=== PATIENT | male | born 1985 | race Caucasian/White ===

== ENCOUNTER 2019-01-15 13:40 | Emergency (ER) | payer OTHER ==
[~2019-01-15] VITALS: Ht 185.4 cm; Wt 90.7 kg
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
[2019-01-15] MEDS ORDERED: ORPHENADRINE CITRATE 60 MG/2 ML VIAL. IM ONE (14:00)
[2019-01-15] MEDS ORDERED: ONDANSETRON PF 4 MG/2 ML VIAL. IV ONE (14:00)
[2019-01-15] MEDS ORDERED: DEXAMETHASONE SOD PHOS 4 MG/ML VIAL IVP ONE (14:00)
[2019-01-15] MEDS ORDERED: IV NORMAL SALINE 1000ML BAG 1,000 ML IV ONE (14:00)
[2019-01-15] MEDS ORDERED: MORPHINE SULFATE 4 MG/ML VIAL. IV ONE (14:00)
[2019-01-15 14:12] LABS: BASO # 0.1 x10^3/uL (0.0-0.2); BASO % 1 % (0-3); EOS # 0.1 x10^3/uL (0.0-0.7); EOS % 1 % (0-3); HEMATOCRIT 44.7 % (39.0-53.0); HEMOGLOBIN 15.6 g/dL (13.0-17.5); LYMPH # 2.9 x10^3/uL (1.0-4.8); LYMPH % 32 % (24-48); MEAN CORPUSCULAR HEMOGLOBIN 30 pg (25-35); MEAN CORPUSCULAR HGB CONC 35 g/dL (31-37); MEAN CORPUSCULAR VOLUME 86 fL (79-100); MONO # 0.6 x10^3/uL (0.0-1.1); MONO % 7 % (0-9); NEUT # 5.3 x10^3/uL (1.8-7.7); NEUT % 59 % (31-73); PLATELET COUNT 206 x10^3/uL (140-400); RED BLOOD COUNT 5.22 x10^6/uL (4.30-5.70); RED CELL DISTRIBUTION WIDTH 13.3 % (11.5-14.5)
[2019-01-15 14:22] LABS: CALCIUM 9.3 mg/dL (8.5-10.1); CREATININE 1.1 mg/dL (0.7-1.3); GFR 77.1
[2019-01-15 14:28] LABS: ALBUMIN 4.1 g/dL (3.4-5.0); ALBUMIN/GLOBULIN RATIO 1.1 (1.0-1.7); TOTAL BILIRUBIN 0.8 mg/dL (0.2-1.0); TOTAL PROTEIN 7.8 g/dL (6.4-8.2)
--- NOTE | 2019-01-15 14:50 | RAD ---
CT LUMBAR SPINE WO CONTRAST History: Back pain. Radiculopathy. Technique: Noncontrast CT was performed of the lumbar spine. Multiplanar reconstructions were performed. Exposure: One or more of the following individualized dose reduction techniques were utilized for this examination: 1. Automated exposure control 2. Adjustment of the mA and/or kV according to patient size 3. Use of iterative reconstruction technique. Comparison: None Findings: Transitional lumbosacral anatomy. Lumbarization of S1. Normal vertebral body height. No fracture. Normal alignment. T12-L1: No canal or neuroforaminal narrowing. L1-L2: No canal or neuroforaminal narrowing. L2-L3: No canal or neuroforaminal narrowing. L3-L4: Minimal posterior disc bulge. Mild facet arthropathy. No canal or neuroforaminal narrowing. L4-L5: Small broad-based posterior disc bulge. Mild facet arthropathy. Mild ligament of flavum thickening. Mild subarticular recess narrowing. No canal narrowing. No neuroforaminal narrowing. L5-S1: Broad-based posterior disc bulge eccentric to the left. Abutment of the bilateral descending S1 nerve roots, left greater than right. Superimposed left foraminal disc protrusion contributing to severe left neural foraminal narrowing with abutment and compression of the exiting left L5 nerve root. No right neuroforaminal narrowing. Mild facet arthropathy. Impression: 1. Left L5-S1 foraminal disc protrusion compressing the exiting left L5 nerve root. Correlate for radiculopathy. 2. L5-S1 disc bulge abutting the bilateral descending S1 nerve roots within the subarticular recess, left greater than right. Correlate for radiculopathy. Electronically signed by: Jarrod Bahena DO (01/15/2019 2:47 PM) [facility]
[2019-01-15] MEDS ORDERED: METH4TAB2 PO (15:14)
[2019-01-15] MEDS ORDERED: CYCL10TA2 PO (15:14)
[2019-01-15] MEDS ORDERED: TRAM50TA PO (15:14)
[2019-01-15] MEDS ORDERED: KETOROLAC 30 MG/ML VIAL. IV ONE (15:15)
[2019-01-15] MEDS ORDERED: MORPHINE SULFATE 2 MG/ML VIAL. IV ONE (15:15)
[2019-01-15 15:31] VITALS: BP 121/74
[2019-01-15 15:35] LABS: BILIRUBIN,URINE NEGATIVE (NEG); CLARITY,URINE CLEAR; COLOR,URINE YELLOW; NITRITE,URINE NEGATIVE (NEG); PH,URINE 6.5; PROTEIN,URINE NEGATIVE (NEG-TRACE)
[2019-01-15 15:56] LABS: BACTERIA,URINE 0 /HPF (0-FEW); RBC,URINE 0 /HPF (0-2); WBC,URINE 0 /HPF (0-4)
== END 2019-01-15 15:45 | disposition home or self-care (01) ==
LOC: ER 14:34
DX: M54.16 Radiculopathy, lumbar region (principal); M79.605 Pain in left leg; Z88.8 Allergy status to other drugs, medicaments and biological substances
CPT/HCPCS: 36415; 72131; 80053; 81001; 85025; 96372; 96374; 96375; 96376; 99285; J1100; J1885; J2270; J2360; J2405; J7030

== ENCOUNTER 2019-01-16 15:24 | Emergency (ER) | payer OTHER ==
[~2019-01-16] VITALS: Ht 185.4 cm; Wt 90.7 kg
[~2019-01-16 15:24] MED LIST: CYCL10TA2 PO; METH4TAB2 PO; TRAM50TA PO
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
[2019-01-16] MEDS ORDERED: KETAMINE HCL IN NACL, ISO-OSM 50 MG/5 ML SYRINGE IV STA (15:46)
[2019-01-16 17:00] VITALS: BP 170/81
== END 2019-01-16 17:03 | disposition home or self-care (01) ==
LOC: ER 15:24
DX: M54.16 Radiculopathy, lumbar region (principal); M79.605 Pain in left leg; Z90.89 Acquired absence of other organs; Z87.442 Personal history of urinary calculi; Z88.5 Allergy status to narcotic agent
CPT/HCPCS: 96374; 99284-25

== ENCOUNTER 2019-02-03 15:21 | Emergency (ER) | payer OTHER ==
[~2019-02-03] VITALS: Ht 185.4 cm; Wt 83.9 kg
[2019-02-03] MEDS ORDERED: IV NORMAL SALINE 1000ML BAG 1,000 ML IV ONE ×2 (15:30→17:15)
--- NOTE | 2019-02-03 15:32 | PHYS DOC ---
Past Medical History Past Medical History: Kidney Stone Past Surgical History: Appendectomy Additional Past Surgical Histo: HERNIA Alcohol Use: Occasionally Drug Use: None Adult General HPI HPI Patient is a 33 year old male that presents to the ER for abdominal pain after he went to physical therapy this morning and after he tried to use the restroom. The patient states that he has not a bowel movement in several days he states that he's been feeling like he needs to go but is been unable to go. The patient rates his pain as 10 out of 10 in severity. Review of Systems Review of Systems Constitutional: Denies fever or chills [] Eyes: Denies change in visual acuity, redness, or eye pain [] HENT: Denies nasal congestion or sore throat [] Respiratory: Denies cough or shortness of breath [] Cardiovascular: No additional information not addressed in HPI [] GI: Reports abdominal pain, Denies nausea, vomiting, bloody stools or diarrhea [] : Denies dysuria or hematuria [] Musculoskeletal: Reports ongoing back pain or joint pain [] Integument: Denies rash or skin lesions [] Neurologic: Denies headache, focal weakness or sensory changes [] Endocrine: Denies polyuria or polydipsia [] Complete systems were reviewed and found to be within normal limits, except as documented in this note. Current Medications Current Medications Current Medications Medications (Trade) Dose Ordered Sig/Jf Start Time Stop Time Status Last Admin Dose Admin Info (CONTRAST GIVEN -- Rx MONITORING) 1 each PRN DAILY PRN 02/03/19 16:30 02/05/19 16:29 Iohexol (Omnipaque 300 Mg/ml) 75 ml 1X ONCE 02/03/19 16:30 02/03/19 16:31 DC 02/03/19 16:35 75 ML Ketorolac Tromethamine (Toradol 15mg Vial) 10 mg 1X STAT 02/03/19 17:10 02/03/19 17:13 DC 02/03/19 17:39 10 MG Morphine Sulfate (Morphine Sulfate) 4 mg 1X ONCE 02/03/19 17:15 02/03/19 17:16 DC 02/03/19 17:41 4 MG Prochlorperazine Edisylate (Compazine) 10 mg 1X STAT 02/03/19 15:44 02/03/19 15:46 DC 02/03/19 15:48 10 MG Sodium Chloride 1,000 ml @ 1,000 mls/hr 1X ONCE 02/03/19 17:15 02/03/19 18:14 DC 02/03/19 17:38 1,000 MLS/HR Allergies Allergies Allergies Coded Allergies Type Severity Reaction Last Updated Verified diphenhydramine Allergy Unknown ANAPHYLAXIS 01/15/19 Yes Physical Exam Physical Exam Constitutional: Well developed, well nourished, no acute distress, non-toxic appearance. [] HENT: Normocephalic, atraumatic, bilateral external ears normal, oropharynx moist, no oral exudates, nose normal. [] Eyes: PERRLA, EOMI, conjunctiva normal, no discharge. [] Neck: Normal range of motion, no tenderness, supple, no stridor. [] Cardiovascular:Heart rate regular rhythm, no murmur [] Lungs & Thorax: Bilateral breath sounds clear to auscultation [] Abdomen: Bowel sounds normal, soft, LLQ tenderness, no masses, no pulsatile masses. [] Skin: Warm, dry, no erythema, no rash. [] Back: No tenderness, no CVA tenderness. [] Extremities: No tenderness, no cyanosis, no clubbing, ROM intact, no edema. [] Neurologic: Alert and oriented X 3, normal motor function, normal sensory function, no focal deficits noted. [] Psychologic: Affect normal, judgement normal, mood normal. [] Current Patient Data Vital Signs Vital Signs Date Time Temp Pulse Resp B/P (MAP) Pulse Ox O2 Delivery O2 Flow Rate FiO2 02/03/19 17:41 16 95 Room Air 02/03/19 15:41 97.3 92 168/102 (124) 97.3 Lab Values Laboratory Tests Test 02/03/19 15:41 02/03/19 17:30 White Blood Count 10.8 x10^3/uL (4.0-11.0) Red Blood Count 5.31 x10^6/uL (4.30-5.70) Hemoglobin 15.8 g/dL (13.0-17.5) Hematocrit 45.9 % (39.0-53.0) Mean Corpuscular Volume 86 fL (79-100) Mean Corpuscular Hemoglobin 30 pg (25-35) Mean Corpuscular Hemoglobin Concent 34 g/dL (31-37) Red Cell Distribution Width 13.6 % (11.5-14.5) Platelet Count 234 x10^3/uL (140-400) Neutrophils (%) (Auto) 64 % (31-73) Lymphocytes (%) (Auto) 26 % (24-48) Monocytes (%) (Auto) 8 % (0-9) Eosinophils (%) (Auto) 1 % (0-3) Basophils (%) (Auto) 1 % (0-3) Neutrophils # (Auto) 6.9 x10^3/uL (1.8-7.7) Lymphocytes # (Auto) 2.9 x10^3/uL (1.0-4.8) Monocytes # (Auto) 0.8 x10^3/uL (0.0-1.1) Eosinophils # (Auto) 0.1 x10^3/uL (0.0-0.7) Basophils # (Auto) 0.1 x10^3/uL (0.0-0.2) Sodium Level 143 mmol/L (136-145) Potassium Level 3.7 mmol/L (3.5-5.1) Chloride Level 105 mmol/L (98-107) Carbon Dioxide Level 23 mmol/L (21-32) Anion Gap 15 (6-14) H Blood Urea Nitrogen 22 mg/dL (8-26) Creatinine 1.3 mg/dL (0.7-1.3) Estimated GFR (Cockcroft-Gault) 63.6 BUN/Creatinine Ratio 17 (6-20) Glucose Level 122 mg/dL (70-99) H Calcium Level 9.5 mg/dL (8.5-10.1) Total Bilirubin 0.7 mg/dL (0.2-1.0) Aspartate Amino Transferase (AST) 39 U/L (15-37) H Alanine Aminotransferase (ALT) 89 U/L (16-63) H Alkaline Phosphatase 77 U/L (46-116) Total Protein 8.0 g/dL (6.4-8.2) Albumin 4.3 g/dL (3.4-5.0) Albumin/Globulin Ratio 1.2 (1.0-1.7) Lipase 190 U/L (73-393) Urine Collection Type Unknown Urine Color Yellow Urine Clarity Clear Urine pH 6.0 Urine Specific [place] >=1.030 Urine Protein Negative mg/dL (NEG-TRACE) Urine Glucose (UA) Negative mg/dL (NEG) Urine Ketones (Stick) Negative mg/dL (NEG) Urine Blood Negative (NEG) Urine Nitrite Negative (NEG) Urine Bilirubin Negative (NEG) Urine Urobilinogen Dipstick 0.2 mg/dL (0.2 mg/dL) Urine Leukocyte Esterase Negative (NEG) Urine RBC 1-2 /HPF (0-2) Urine WBC 1-4 /HPF (0-4) Urine Bacteria 0 /HPF (0-FEW) Urine Mucus Slight /LPF Laboratory Tests 02/03/19 15:41 Laboratory Tests 02/03/19 15:41 EKG EKG [] Radiology/Procedures Radiology/Procedures [][facility] [address] [place] [address] IMAGING REPORT Signed PATIENT: ESPINOZA HANNA ACCOUNT: [id number] : 1985 LOCATION: ER AGE: 33 SEX: M EXAM STATUS: REG ER ORD. PHYSICIAN: BEATRIZ MENON APRN REASON: LLQ abdominal pain PROCEDURE: CT ABD PELV W/ IV CONTRST ONLY Examination: CT ABD PELV W/ IV CONTRST ONLY History: Left lower quadrant pain Comparison/Correlation: None Findings: Axial images of the abdomen and pelvis were obtained following IV contrast. Sagittal and coronal reformatted images were not provided. Visualized lung bases are clear. Liver, spleen, pancreas, adrenal glands, and right collecting system are unremarkable. There is left hydronephrosis and hydroureter due to a ureterovesical junction partially obstructive calculus measuring up to 0.45 cm diameter. Urinary bladder is unremarkable. There is no bowel obstruction. Fluid is noted to distend the stomach. No inflammatory changes surrounding the cecum identified. No acute bony process. No enlarged abdominal or pelvic lymph nodes. No ascites or pelvic free fluid. No extraluminal gas. Impression: Left ureterovesical junction partially obstructive calculus. Associated hydronephrosis and hydroureter. PQRS Compliance Statement: One or more of the following individualized dose reduction techniques were utilized for this examination: 1. Automated exposure control 2. Adjustment of the mA and/or kV according to patient size 3. Use of iterative reconstruction technique Electronically signed by: Chris Russell MD (02/03/2019 4:44 PM) [facility] DICTATED and SIGNED BY: CHRIS RUSSELL MD DATE: 02/03/19 8101 Course & Med Decision Making Course & Med Decision Making Pertinent Labs and Imaging studies reviewed. (See chart for details) Will get abdominal x-ray, labs. Abdominal x-ray was normal. Labs were unremarkable. Ordered CT showed 0.45 cm stone that is partially obstructed. Will d/c home with flomax and norco. Instructed to follow up with urology if stone does not pass. Dragon Disclaimer Dragon Disclaimer This electronic medical record was generated, in whole or in part, using a voice recognition dictation system. Departure Departure Impression: Primary Impression: Left nephrolithiasis Disposition: HOME, SELF-CARE Condition: STABLE Referrals: DEBRA EASTMAN (PCP) Patient Instructions: Diet for Kidney Stones, Kidney Stones Additional Instructions: Thank you for visiting [facility]. We appreciate you trusting us with your care. If any additional problems come up don't hesitate to return to visit us. Please follow up with your primary care provider so they can plan additional care if needed and know about the problem that you had. If symptoms worsen come back to the Emergency Department. Any concerning symptoms that start such as chest pain, shortness of air, weakness or numbness on one side of the body, running high fevers or any other concerning symptoms return to the ER. Please follow up with [facility]. Call and make an appointment. Scripts Tamsulosin Hcl (FLOMAX) 0.4 Mg Cap.er.24h 0.4 MG PO DAILY for 10 Days, #10 TAB Prov: BEATRIZ MENON APRN 02/03/19 Hydrocodone/Apap 5-325 (NORCO 5-325 TABLET) 1 Each Tablet 1 TAB PO PRN Q6HRS PRN for PAIN for 3 Days, #10 TAB 0 Refills Prov: BEATRIZ MNEON APRN 02/03/19 BEATRIZ MENON APRN Feb 03, 2019 15:32
[2019-02-03] MEDS ORDERED: PROCHLORPERAZINE 10 MG/2 ML VIAL. IV STA (15:44)
[2019-02-03 15:51] LABS: BASO # 0.1 x10^3/uL (0.0-0.2); BASO % 1 % (0-3); EOS # 0.1 x10^3/uL (0.0-0.7); EOS % 1 % (0-3); HEMATOCRIT 45.9 % (39.0-53.0); HEMOGLOBIN 15.8 g/dL (13.0-17.5); LYMPH # 2.9 x10^3/uL (1.0-4.8); LYMPH % 26 % (24-48); MEAN CORPUSCULAR HEMOGLOBIN 30 pg (25-35); MEAN CORPUSCULAR HGB CONC 34 g/dL (31-37); MEAN CORPUSCULAR VOLUME 86 fL (79-100); MONO # 0.8 x10^3/uL (0.0-1.1); MONO % 8 % (0-9); NEUT # 6.9 x10^3/uL (1.8-7.7); NEUT % 64 % (31-73); PLATELET COUNT 234 x10^3/uL (140-400); RED BLOOD COUNT 5.31 x10^6/uL (4.30-5.70); RED CELL DISTRIBUTION WIDTH 13.6 % (11.5-14.5); WHITE BLOOD COUNT 10.8 x10^3/uL (4.0-11.0)
--- NOTE | 2019-02-03 16:05 | RAD ---
Examination: ABDOMEN SUPINE UPRIGHT History: Left lower abdominal pain Comparison/Correlation: None Findings: Supine and upright views of the abdomen were obtained. Portable technique utilized. Visualized lung bases are clear. No extraluminal gas or evidence of obstruction. No significant retained stool in colon. Radiopaque densities at the superior pubic ramus level bilaterally seen. Correlate with surgical history. No suspicious calcifications. Impression: No obstruction. Electronically signed by: Chris Layne MD (02/03/2019 4:02 PM) [facility]
[2019-02-03 16:13] LABS: CALCIUM 9.5 mg/dL (8.5-10.1); CREATININE 1.3 mg/dL (0.7-1.3); GFR 63.6; POTASSIUM 3.7 mmol/L (3.5-5.1)
[2019-02-03 16:18] LABS: ALBUMIN 4.3 g/dL (3.4-5.0); ALBUMIN/GLOBULIN RATIO 1.2 (1.0-1.7); TOTAL BILIRUBIN 0.7 mg/dL (0.2-1.0)
[2019-02-03] MEDS ORDERED: CONTRAST GIVEN. MC PRN (16:30)
[2019-02-03] MEDS ORDERED: IOHEXOL 300 MG/ML 100ML VIAL. IV ONE (16:30)
--- NOTE | 2019-02-03 16:47 | RAD ---
Examination: CT ABD PELV W/ IV CONTRST ONLY History: Left lower quadrant pain Comparison/Correlation: None Findings: Axial images of the abdomen and pelvis were obtained following IV contrast. Sagittal and coronal reformatted images were not provided. Visualized lung bases are clear. Liver, spleen, pancreas, adrenal glands, and right collecting system are unremarkable. There is left hydronephrosis and hydroureter due to a ureterovesical junction partially obstructive calculus measuring up to 0.45 cm diameter. Urinary bladder is unremarkable. There is no bowel obstruction. Fluid is noted to distend the stomach. No inflammatory changes surrounding the cecum identified. No acute bony process. No enlarged abdominal or pelvic lymph nodes. No ascites or pelvic free fluid. No extraluminal gas. Impression: Left ureterovesical junction partially obstructive calculus. Associated hydronephrosis and hydroureter. PQRS Compliance Statement: One or more of the following individualized dose reduction techniques were utilized for this examination: 1. Automated exposure control 2. Adjustment of the mA and/or kV according to patient size 3. Use of iterative reconstruction technique Electronically signed by: Chris Layne MD (02/03/2019 4:44 PM) [facility]
[2019-02-03] MEDS ORDERED: KETOROLAC 15 MG/ML VIAL. IV STA (17:10)
[2019-02-03] MEDS ORDERED: MORPHINE SULFATE 4 MG/ML VIAL. IV ONE (17:15)
[2019-02-03 17:41] LABS: BILIRUBIN,URINE NEGATIVE (NEG); CLARITY,URINE CLEAR; COLOR,URINE YELLOW; NITRITE,URINE NEGATIVE (NEG); PROTEIN,URINE NEGATIVE (NEG-TRACE); UROBILINOGEN,URINE 0.2 mg/dL (0.2 mg/dL)
[2019-02-03 18:24] LABS: BACTERIA,URINE 0 /HPF (0-FEW)
[2019-02-03] MEDS ORDERED: HYDR-3164 PO (18:57)
[2019-02-03] MEDS ORDERED: TAMS0.4C97 PO (18:57)
[2019-02-03 19:10] VITALS: BP 128/78
== END 2019-02-03 19:13 | disposition home or self-care (01) ==
LOC: ER 15:21
DX: N13.2 Hydronephrosis with renal and ureteral calculous obstruction (principal); Z87.442 Personal history of urinary calculi; Z90.89 Acquired absence of other organs; Z88.8 Allergy status to other drugs, medicaments and biological substances
CPT/HCPCS: 36415; 74021; 74177; 80053; 81001; 83690; 85025; 96374; 96375; 99285; J0780; J1885; J2270; J7030; Q9967